=== PATIENT | male | born 1960 | race African-American/Black ===

== ENCOUNTER 2020-04-18 22:48 | Emergency (ER) | payer OTHER ==
[~2020-04-18] VITALS: Ht 190.5 cm; Wt 95.3 kg
[2020-04-18] MEDS ORDERED: NORCO 5-325 TA1 EAC1 ORAL (23:10)
[2020-04-18] MEDS ORDERED: IBUPROFEN600 M1 ORAL (23:10)
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
[2020-04-18 23:20] VITALS: BP 122/73
[2020-04-18] MEDS ORDERED: Vancomycin 1.5 GM in NS 275 ML IVPB ONE (23:30)
[2020-04-18] MEDS ORDERED: Piperacillin/Tazobactam 3.375 GM in NS 110 ML IVPB ONE (23:30)
[2020-04-18] MEDS ORDERED: HYDROmorphone 1mg/ml Carpuject IVP ONE (23:30)
[2020-04-18] MEDS ORDERED: Neosporin Oint Ud Pkt TOPIC ONE (23:30)
[2020-04-18] MEDS ORDERED: Vancomycin 1.5gm/300ml Premix 300 ML IVPB ONE (23:35)
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
--- NOTE | 2020-04-18 23:50 | NUR ---
ED Nurse Note: iv access established. blood and wound swab collected; sent down to lab.
[2020-04-19 00:04] LABS: BASOPHILS % (AUTO) 1.4 % (0.0-2.0); EOSINOPHILS % (AUTO) 1.9 % (0.0-3.0); HEMATOCRIT 39.6 % (42.0-52.0); HEMOGLOBIN 14.6 G/DL (14.2-18.0); MEAN CORPUSCULAR VOLUME 90 FL (80-99); MONOCYTES % (AUTO) 12.2 % (1.0-10.0); NEUTROPHILS % (AUTO) 56.6 % (45.0-75.0); PLATELET COUNT 223 K/UL (150-450); RED BLOOD COUNT 4.39 M/UL (4.70-6.10); RED CELL DISTRIBUTION WIDTH 13.4 % (11.6-14.8); WHITE BLOOD COUNT 8.7 K/UL (4.8-10.8)
[2020-04-19 00:13] LABS: ANION GAP 7 mmol/L (5-15); BLOOD UREA NITROGEN 16 mg/dL (7-18); CALCIUM 8.5 MG/DL (8.5-10.1); CARBON DIOXIDE 27 MMOL/L (21-32); CHLORIDE 107 MMOL/L (98-107); CREATININE 1.1 MG/DL (0.55-1.30); POTASSIUM 3.7 MMOL/L (3.5-5.1); SODIUM 141 MMOL/L (136-145)
[2020-04-19] MEDS ORDERED: MUPIROCIN22 GM TOPIC (00:34)
[2020-04-19] MEDS ORDERED: HYDROCODON-ACE1 EA15 ORAL (00:34)
[2020-04-19] MEDS ORDERED: CLINDAMYCIN HC300 MG ORAL (00:34)
[2020-04-19 01:30] VITALS: BP 124/74
== END 2020-04-19 01:30 | disposition home or self-care (01) ==
LOC: EMR 23:03
DX: L03.115 Cellulitis of right lower limb (principal); Z48.89 Encounter for other specified surgical aftercare
CPT/HCPCS: 36415; 80048; 85025; 87070; 87181; 87205; 96365; 96366; 96367; 96375; 99284; J1170; J2543; J3370